=== PATIENT | female | born 2000 | race Caucasian/White ===

== ENCOUNTER 2022-06-10 17:40 | Emergency (ER) | payer OTHER, SELFPAY ==
[2022-06-10 18:27] VITALS: BP 155/103; PULSE 97; RESP 16; TEMP 36.9; O2SAT 100
--- NOTE | 2022-06-10 18:51 | ED.LOWEXIN ---
HPI - Extremity Injury (Lower) General Chief Complaint: Extremity Injury, Lower Stated Complaint: Fall Left/Right Ankle Pain Time Seen by Provider: 06/10/22 19:27 Source: patient and RN notes reviewed Mode of arrival: ambulatory Limitations: no limitations History of Present Illness HPI Narrative: 21-year-old female presents with concern for bilateral lower extremity injury. She reports she injured herself on Friday when she stepped in a hole. She reports pain to the distal left foot, pain, swelling, bruising to the right ankle and foot. Reports pain is improved, however the bruising worsened so she sought care today. She denies any intervention for her symptoms, reports she has been working on her feet today. MD complaint: ankle injury and foot injury Related Data Home Medications Medication Instructions Recorded Confirmed No Home Medications 06/10/22 06/10/22 Allergies Allergy/AdvReac Type Severity Reaction Status Date / Time NKDA Allergy Mild Other Uncoded 06/10/22 17:50 Review of Systems Review of Systems: CONSTITUTIONAL: Denies malaise, chills, sweats, or fever. SKIN: Denies rash or itching, open skin, laceration, abrasion, redness, warmth MUSCULOSKELETAL: Reports left foot pain, right ankle and foot pain and bruising, swelling NEUROLOGIC: Denies numbness, weakness All systems reviewed & are unremarkable except as noted in HPI and below PMFSH Comments At time of signature, agree with nursing past medical, surgical, social and family history. There is no relevant family history pertinent to the presenting complaint Exam Narrative: GENERAL: Well-appearing, well-nourished, and in no acute distress. HEAD: Normocephalic, atraumatic. EYES: PERRLA, conjunctivae clear NECK: Supple. CHEST: Speaks in full sentences. No respiratory distress. HEART: Regular rate and rhythm. Normal and equal peripheral pulses. EXTREMITIES: Left foot has normal strength and sensation, normal range of motion. No edema. Very mild ecchymosis and tenderness noted beneath the first digit of the left foot. 5/5 strength with digit flexion and extension. Normal sensation with sensitivity to light touch and pain. No point tenderness. No open wounds, no skin tenting, no devitalized tissue or atrophy, no trophic changes, no obvious deformity, alignment normal, nearby joints and structures intact. Distal pulses palpable and equal bilaterally, skin warm, dry, pink. Capillary refill less than 3 seconds. Right ankle, foot, digits have normal strength and sensation, normal range of motion. Moderate ankle and foot edema. Moderate ecchymosis to the distal digits, mild ecchymosis the ankle. Denies foot or ankle tenderness. 5/5 strength with digit flexion and extension. Normal sensation with sensitivity to light touch and pain. No point tenderness. No open wounds, no skin tenting, no devitalized tissue or atrophy, no trophic changes, no obvious deformity, alignment normal, nearby joints and structures intact. Distal pulses palpable and equal bilaterally, skin warm, dry, pink. Capillary refill less than 3 seconds. SKIN: Warm, dry, no rash. NEURO: Alert and oriented x3. PSYCH: Normal mood and affect Course Course Emergency Course: Discussed x-ray options with patient, patient would declines x-rays at this time. Advised patient that if symptoms do not improve she can return for reevaluation and possible x-ray. Patient is aware of diagnosis, understands and agrees to treatment plan. Anticipatory guidance given. Patient agrees to follow-up as directed and is aware of reasons to seek care at the emergency department. Portions of this record may have been created with voice recognition software Level of Care: Express Care Visit Vital Signs Vital signs: Vital Signs Temperature 98.4 F 06/10/22 18:27 Pulse Rate 97 06/10/22 18:27 Respiratory Rate 16 06/10/22 18:27 Blood Pressure 155/103 H 06/10/22 18:27 Pulse Oximetry 100 06/10/22 18:27 Oxygen Cristine
== END 2022-06-10 19:50 | disposition home or self-care (01) ==
PROVIDERS: Emergency Provider Nurse Practitioner; PCP Pediatrics
DX: S93.401A Sprain of unspecified ligament of right ankle, initial encounter (principal); S96.911A Strain of unspecified muscle and tendon at ankle and foot level, right foot, initial encounter; S93.602A Unspecified sprain of left foot, initial encounter; W17.2XXA Fall into hole, initial encounter
CPT/HCPCS: 99212; G0463

== ENCOUNTER 2025-01-25 10:48 | Emergency (ER) | payer OTHER, SELFPAY ==
[2025-01-25 11:04] VITALS: BP 98/74; PULSE 85; RESP 16; TEMP 36.2; O2SAT 100
[2025-01-25 11:21] LABS: EDSTREPNEGPOS1 Negative (Negative)
[2025-01-25 11:22] LABS: EDUAAPPEAR Clear; EDUABILI Negative (Negative); EDUABLOOD Negative (Negative); EDUACOLOR1 Dark; EDUAGLUCOSE Negative (Negative); EDUAKETONE Negative (Negative); EDUALEUKO Negative (Negative); EDUANITRATE Negative (Negative); EDUAPROTEIN Negative (Negative); EDUAUROBILI 0.2
--- NOTE | 2025-01-25 11:56 | ED_ITS ---
HPI - URI/Sore Throat General Chief Complaint: Upper Respiratory Infection Stated Complaint: sore throat/urinary irritation History of Present Illness HPI Narrative: 24-year-old female presented for complaint of sore throat, itchy ears, and nasal congestion. Onset 1 week. The throat pain has been worsening over the past few days. Patient also reports lower abdominal pain, urinary frequency and dark colored urine. states her period is a few days late. Denies concern for STD. Denies hematuria, nausea, vomiting, abdominal pain, flank pain, constipation, diarrhea, fevers or chills. Related Data Home Medications ?Medication ?Instructions ?Recorded ?Confirmed ?Last Taken ?Type No Home Medications 06/10/22 01/25/25 Unknown History Allergies Allergy/AdvReac Type Severity Reaction Status Date / Time NKDA Allergy Mild Other Uncoded 01/25/25 11:09 Review of Systems Review of Systems: per HPI Exam Narrative: GENERAL: well-appearing, no acute distress. EYES: conjunctivae clear ENT: Mucous membranes moist. TM pearly stevenson with normal light reflex bilaterally; no tragal tenderness. Oropharynx mildly erythematous without lesions. Tonsils enlarged 1+ and without exudate. No drooling, no hoarseness, no trismus, uvula midline. No tripod positioning, hot potato voice, or soft palate swelling. NECK: Supple. No lymphadenopathy CHEST: Clear to auscultation, breath sounds equal. No respiratory distress, speaks in full sentences. HEART: Regular rate and rhythm. No murmur heard. SKIN: Warm, dry, no rash. NEURO: Alert and oriented x3. Course Course Emergency Course: Patient is aware of diagnosis, understands and agrees to treatment plan. Anticipatory guidance given. Patient agrees to follow-up as directed and is aware of reasons to seek care at the emergency department. Portions of this record may have been created with voice recognition software Level of Care: Express Care Visit Vital Signs Vital signs: Vital Signs Temperature 97.2 F L 01/25/25 11:04 Pulse Rate 85 01/25/25 11:04 Respiratory Rate 16 01/25/25 11:04 Blood Pressure 98/74 L 01/25/25 11:04 Pulse Oximetry 100 01/25/25 11:04 Oxygen Delivery Room Air 01/25/25 11:04 Temperature 97.2 F L 01/25/25 11:04 Pulse Rate 85 01/25/25 11:04 Respiratory Rate 16 01/25/25 11:04 Blood Pressure 98/74 L 01/25/25 11:04 Pulse Oximetry 100 01/25/25 11:04 Oxygen Delivery Room Air 01/25/25 11:04 MDM - URI/Sore Throat MDM Narrative Medical decision making narrative: Neg strep result and urine dip and neg preg reviewed with pt. will culture. Advise supportive treatments and s/s to go to the ER. Patient is appropriate fo r outpatient treatment and follow-up. Differential Diagnosis Differential diagnosis: Likely upper respiratory infection, viral infection and pharyngitis Lab Data Labs: Lab Results 01/25/25 01/25/25 Range/Units 11:20 12:08 POC Urine Color Dark POC Urine Clarity Clear POC Urine pH 6.0 POC Ur Specif [place] 1.030 POC Urine Protein Negative (Negative) POC Ur Glucose (UA) Negative (Negative) POC Urine Ketones Negative (Negative) POC Urine Blood Negative (Negative) POC Urine Nitrite Negative (Negative) POC Urine Bilirubin Negative (Negative) POC Urine Urobilinogen 0.2 POC U Leukocyte Esteras Negative (Negative) POC Urine HCG, Qual Negative (Negative) POC Grp A Strep Screen Negative (Negative) Discharge Plan Discharge Clinical Impression: Upper respiratory infection Patient Disposition: Home Condition: Stable Instructions: Antibiotic Form, Upper Respiratory Infection (ED) Additional Instructions: Rapid strep swab was negative today You will be notified in a few days if the culture comes back positive for strep, and appropriate antibiotics will be called in at that time. if symptoms are due to a viral illness, it is not treated with antibiotics. Viral symptoms can be present for up to 10-14 days. Recommendations: Flonase spray and Zyrtec for sinus congestion Cough syrup may cause drowsiness; avoid driving or take it at night time. Tylenol every 8 hours as needed for pain/fever Soft foods, cool liquids, warm tea. Gargle with warm saltwater twice a day. Chloraseptic spray and throat lozenges. Rest and stay hydrated. Your urine will be sent of for a culture to determine if bacteria is causing your symptoms. If the culture shows a UTI, you will be notified and an antibiotic will be called in for you. --Follow up with your PCP --Go to the ER for any worsening symptoms or concerns Patient Language: Setswana Prescriptions: No Action No Home Medications Follow-up/Referrals: UNKNOWN,DOCTOR [Primary Care Provider] - Time of Disposition: 12:20
[2025-01-25 12:09] LABS: BEDSIDEPREGUCG Negative (Negative)
== END 2025-01-25 12:24 | disposition home or self-care (01) ==
PROVIDERS: Emergency Provider Nurse Practitioner Family
DX: J06.9 Acute upper respiratory infection, unspecified (principal)
CPT/HCPCS: 81003; 81025; 87081; 87086; 87880; 99213; G0463

== ENCOUNTER 2025-03-18 10:58 | Emergency (ER) | payer OTHER, SELFPAY ==
[2025-03-18 11:11] VITALS: BP 115/70; PULSE 73; RESP 18; TEMP 36.9; O2SAT 100
[2025-03-18 11:41] LABS: EDSTREPNEGPOS1 Negative (Negative)
--- NOTE | 2025-03-18 11:42 | ED_ITS ---
HPI - General Adult General Chief complaint: Upper Respiratory Infection Stated complaint: Sore Throat Source: patient Mode of arrival: ambulatory Limitations: no limitations History of Present Illness HPI narrative: Patient presents for evaluation of sore throat. Symptom onset this morning. She had some cervical lymphadenopathy on the left side. She took ibuprofen and that has since subsided. She denies any fever, chills, otalgia, nausea, vomiting, diarrhea. No recent sick contacts to her knowledge. She does vape and use marijuana. Related Data Home Medications ?Medication ?Instructions ?Recorded ?Confirmed ?Last Taken ?Type No Home Medications 06/10/22 03/18/25 Unknown History Allergies Allergy/AdvReac Type Severity Reaction Status Date / Time NKDA Allergy Mild Other Uncoded 03/18/25 11:05 Review of Systems Review of Systems: CONSTITUTIONAL: Denies fever, chills, or sweats. EYES: Denies visual changes, redness, or discharge. ENT: Reports sore throat. Denies rhinorrhea, congestion, or otalgia. CARDIOVASCULAR: Denies chest pain, palpitations, or edema. RESPIRATORY: Denies cough or dyspnea. GASTROINTESTINAL: Denies abdominal pain, nausea, vomiting, or diarrhea. GENITOURINARY: Denies dysuria or hematuria. SKIN: Denies rash or itching. MUSCULOSKELETAL: Denies back pain, joint pain, or myalgia. NEUROLOGIC: Denies headache, numbness, dizziness, or weakness. PSYCHIATRIC: Denies anxiety or depression. [facility] Past Medical History Medical History No pertinent past medical history Surgical History Surgical History No pertinent past surgical history Family History Family History Mother Family history non-contributory Social History Social History Smoking status: Current every day smoker Tobacco type: e-cigarettes/vaping Alcohol intake: current Alcohol use details: social Substance use: current Substance use type: marijuana Living arrangements: with family Gender identity (if verbalized by the patient): Female Spiritual care concerns: No Exam Narrative: GENERAL: Well-appearing, well-nourished, and in no acute distress. HEAD: Normocephalic, atraumatic. EYES: PERRLA and EOMI. ENT: Nares clear, no rhinorrhea or epistaxis. Mucous membranes moist. bilateral tonsillar enlargement with erythema and white exudate. Uvula is midl ine. Bilateral TMs pearly stevenson nonbulging NECK: Supple. No adenopathy or masses. No carotid bruits or JVD CHEST: Clear to auscultation. No respiratory distress. No wheezes rales or rhonchi HEART: Regular rate and rhythm. No murmur heard. Normal peripheral pulses. ABDOMEN: Soft, nontender, nondistended, normal active bowel sounds. EXTREMITIES: Normal range of motion. No edema. SKIN: Warm, dry, no rash. NEURO: No focal deficits. Alert and oriented x3. PSYCH: Normal mood and affect. Course Course Emergency Course: This is a 24-year-old female who presented for evaluation of sore throat. Rapid strep negative. Through shared decision making opted to proceed with antibiotic therapy. Will discharge with amoxicillin. Throat culture to be sent. Follow up with primary care provider and go to the ER for worsening symptoms. Pt in agreement with plan of care. Level of Care: Express Care Visit Vital Signs Vital signs: Vital Signs Temperature 36.9 C 03/18/25 11:11 Pulse Rate 03/18/25 11:11 Respiratory Rate 03/18/25 11:11 Blood Pressure 115/70 03/18/25 11:11 Pulse Oximetry 03/18/25 11:11 Oxygen Delivery Room Air 03/18/25 11:11 Temperature 36.9 C 03/18/25 11:11 Pulse Rate 03/18/25 11:11 Respiratory Rate 03/18/25 11:11 Blood Pressure 115/70 03/18/25 11:11 Pulse Oximetry 03/18/25 11:11 Oxygen Delivery Room Air 03/18/25 11:11 Medical Decision Making Vital Signs Vital Signs: Vital Signs Temperature 36.9 C 03/18/25 11:11 Pulse Rate 03/18/25 11:11 Respiratory Rate 18 03/18/25 11:11 Blood Pressure 115/70 03/18/25 11:11 Pulse Oximetry 03/18/25 11:11 Oxygen Delivery Room Air 03/18/25 11:11 Temperature 36.9 C 03/18/25 11:11 Pulse Rate 73 03/18/25 11:11 Respiratory Rate 18 03/18/25 11:11 Blood Pressure 115/70 03/18/25 11:11 Pulse Oximetry 100 03/18/25 11:11 Oxygen Delivery Room Air 03/18/25 11:11 Lab Data Labs: Lab Results 03/18/25 Range/Units 11:38 POC Grp A Strep Screen Negative (Negative) Discharge Plan Discharge Clinical Impression: Pharyngitis Patient Disposition: Home Condition: Stable Instructions: Antibiotic Form, Pharyngitis (ED) Patient Language: Kosovan Prescriptions: New amoxicillin 500 mg capsule 500 mg PO Q12H Qty: 20 0RF No Action No Home Medications Follow-up/Referrals: Mayito Beard MD [Physician] - Time of Disposition: 11:39
== END 2025-03-18 11:41 | disposition home or self-care (01) ==
PROVIDERS: Emergency Provider Nurse Practitioner
DX: J02.9 Acute pharyngitis, unspecified (principal); F17.290 Nicotine dependence, other tobacco product, uncomplicated
CPT/HCPCS: 87081; 87880; 99213; G0463